=== PATIENT | female | born 1940 | race Caucasian/White ===

== ENCOUNTER → 2017-04-01 | Outpatient (CLI) | payer MEDICARE, OTHER ==
[~2017-04-01] MED LIST: ALDACTONE25 MG PO; AMITRIPTYLINE H10 M3 PO; AMITRIPTYLINE H25 M2 PO; CARISOPRODOL 3350 MG PO; CENTRUM SILVER1 EAC4 PO; CINNAMON500 MG PO; FISH OIL 1,001000 M2 PO; MAGNESIUM400 MG PO; NEURONTIN 300300 M1 PO; PREMARIN VAGI42.5 G1 TOP; PREMARIN0.625 MG PO; PROLIA60 MG/1 ML SQ; VITAMIN B-12500 MCG PO; VITAMIN D1000 UNI1 PO; VITAMIN K100 MCG PO; VITAMINC500 PO; [UNRECOGNIZED DRUG - OTHER] TP
== END ==
LOC: M.RAD 13:20
DX: Z12.31 Encounter for screening mammogram for malignant neoplasm of breast (principal)

== ENCOUNTER → 2018-04-05 | Outpatient (CLI) | payer MEDICARE, OTHER | LOC: M.RAD 13:00 | DX: Z12.31 Encounter for screening mammogram for malignant neoplasm of breast (principal) ==

== ENCOUNTER → 2019-08-28 | Outpatient (CLI) | payer MEDICARE, OTHER | LOC: M.RAD 09:40 | PROVIDERS: ATTEND Internal Medicine | DX: Z12.31 Encounter for screening mammogram for malignant neoplasm of breast (principal); N64.89 Other specified disorders of breast ==